=== PATIENT | male | born 1995 | race Caucasian/White ===

== ENCOUNTER 2021-03-29 12:49 | Emergency (ER) | payer MEDICAID ==
[~2021-03-29] VITALS: Ht 180.3 cm; Wt 83.0 kg
[2021-03-29 12:58] VITALS: BP 134/70
--- NOTE | 2021-03-29 13:10 | NUR ---
26 YO M BIB SELF FOR C/O OF 8/10 LOWER ABDOMINAL PAIN SINCE LAST NIGHT AND BRIGHT RED BLOODY STOOL. PATIENT STATES HE WAS HEAVILY DRINKING LAST NIGHT AND LATER HAD 5 EPISODES OF BRIGHT RED BLOOD IN HIS STOOL LAST NIGHT AND ONE EPISODE 30 MIN PRIOR TO ARRIVAL TO ED. PATIENT STATES HE HAD LOWER ABDOMINAL PAIN WHEN IT STARTED BUT NO PAIN AT THE MOMENT. PATIENT STATES HE FEELS A SHARP LOWER BACK PAIN, PATIENT DENIES NAUSEA, VOMITING, OR PAINFUL URINATION.
--- NOTE | 2021-03-29 13:18 | NUR ---
ALISON VENTURA AT BEDSIDE FOR EVALUATION. 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 CONFECTIONERY LABORATORY MANAGER ID # [id number]
--- NOTE | 2021-03-29 13:27 | NUR ---
Rectal exam performed per ALISON Clark with Remberto GREEN at bedside during procedure. Patient tolerated well.
[2021-03-29] MEDS ORDERED: NACL 0.9% 1,000 ML IV ONE (13:35)
[2021-03-29] MEDS ORDERED: MORPHINE SULFATE 2 MG/ML SYR IVP ONE (13:35)
[2021-03-29] MEDS ORDERED: DICYCLOMINE HCL LIQUID 20 MG, ALUMINUM HYD/MAG/SIMETHICONE 30 ML, LIDOCAINE VISCOUS 2% ... PO ONE ×3 (13:40)
[2021-03-29] MEDS ORDERED: DICYCLOMINE HCL LIQUID 10 MG/5 ML UDC ONE (13:54)
[2021-03-29] MEDS ORDERED: LIDOCAINE VISCOUS 2% 20 ML UDC ONE (13:54)
[2021-03-29] MEDS ORDERED: ALUMINUM HYD/MAG/SIMETHICONE 30 ML UDC ONE (13:54)
[2021-03-29 14:00] LABS: BASOPHILS % (AUTO) 0.1 % (0.0-2.0); EOSINOPHILS % (AUTO) 0.2 % (0.0-4.0); HEMATOCRIT 46.3 % (36-52); HEMOGLOBIN 15.8 g/dL (12.0-18.0); LYMPHOCYTES # (AUTO) 0.6 K/uL (2.0-11.5); LYMPHOCYTES % (AUTO) 6.2 % (20.5-51.1); MEAN CORPUSCULAR HEMOGLOBIN 32 pg (27-31); MEAN CORPUSCULAR HGB CONC 34 g/dL (33-37); MEAN CORPUSCULAR VOLUME 93.2 fL (80-94); MONOCYTES # (AUTO) 0.8 K/uL (0.8-1.0); MONOCYTES % (AUTO) 7.8 % (1.7-9.3); NEUTROPHILS # (AUTO) 8.7 K/uL (1.8-7.7); NEUTROPHILS % (AUTO) 85.7 % (42.2-75.2); PLATELET COUNT (AUTO) 207 K/uL (140-450); RED BLOOD CELL COUNT(AUTO) 4.97 MIL/uL (4.20-6.10); RED CELL DISTRIBUTION WIDTH 12.6 % (11.6-13.7); WHITE BLOOD COUNT (AUTO) 10.1 K/uL (4.8-10.8)
[2021-03-29 14:14] LABS: PROTHROMBIN TIME 9.8 secs (10.8-13.4)
[2021-03-29 14:28] LABS: ALBUMIN 4.4 g/dL (3.4-5.0); ANION GAP 12.5 (8-16); CREATININE 1.1 mg/dL (0.6-1.3); POTASSIUM 3.5 mmol/L (3.5-5.1); TOTAL BILIRUBIN 1.3 mg/dL (0.0-1.0)
[2021-03-29] MEDS ORDERED: OMEP20TC12 PO (14:35)
[2021-03-29] MEDS ORDERED: ACET-10509 PO (14:35)
--- NOTE | 2021-03-29 14:57 | NUR ---
BUSINESS EDITOR [email or web address] USED FOR ASL. EXPLOSION WELDER ID # [id number]. ALL DISCHARGE INSTRUCTIONS GIVEN TO PATIENT AND EXPLAINED BY ALISON VENTURA.
--- NOTE | 2021-03-29 15:30 | NUR ---
Patient discharged with v/s stable. Written and verbal after care instructions given and explained. Patient alert, oriented and verbalized understanding of instructions. Ambulatory with steady gait. All questions addressed prior to discharge. ID band removed. Patient advised to follow up with PMD. Rx of Acetaminophen and Omeprazole given. Patient educated on indication of medication including possible reaction and side effects. Opportunity to ask questions provided and answered. [employer] used for ASL. Dip Tube Assembler Machine ID# [id number]
[2021-03-29 15:35] VITALS: BP 120/76
== END 2021-03-29 15:30 | disposition home or self-care (01) ==
LOC: MED 12:49
DX: K92.1 Melena (principal); K29.20 Alcoholic gastritis without bleeding; Z79.899 Other long term (current) drug therapy
CPT/HCPCS: 36415; 80053; 81002; 83690; 85025; 85610; 85730; 96361; 96374; 99283; J2270; J7030